=== PATIENT | male | born 1985 | race Caucasian/White ===

== ENCOUNTER 2021-05-16 17:37 | Emergency (ER) | payer OTHER ==
[2021-05-16 17:55] VITALS: RESP 18
[2021-05-16] MEDS ORDERED: ACETAMINOPHEN TAB 500 MG TAB PO STA (18:14)
--- NOTE | 2021-05-16 18:17 | ED ---
General Adult HPI - General Chief complaint: Fever Stated complaint: LR abd pain/fever Time Seen by Provider: 05/16/21 17:59 Source: patient Mode of arrival: ambulatory Limitations: no limitations - History of Present Illness Initial comments: This 35-year-old male presents emergency Department with fever and body aches that began today. Patient states at around 2:00 he began to feel fatigued and started to have body aches, chills, and a dull headache. Patient states a lot of his coworkers are outright now due to COVID-19. Patient denies any chest pain, shortness breath, abdominal pain, change in bowel or bladder, change in vision, dizziness, headache, dizziness, change in appetite. - Related Data Previous Rx's Medication Instructions Recorded ARIPiprazole [Abilify] 2 mg PO DAILY #30 tab 08/04/14 Escitalopram [Lexapro] 10 mg PO DAILY #30 tab 08/04/14 Allergies Allergy/AdvReac Type Severity Reaction Status Date / Time amoxicillin Allergy Unknown Verified 05/16/21 17:54 Review of Systems ROS Statement: Those systems with pertinent positive or pertinent negative responses have been documented in the HPI. ROS Other: All systems not noted in ROS Statement are negative. Past Medical History Additional Past Medical History / Comment(s): Mentally challenged, chronic back pain History of Any Multi-Drug Resistant Organisms: None Reported Past Surgical History: Ear Surgery Additional Past Surgical History / Comment(s): Left ear surgical repair after being sliced, epidural/trigger point injections for back pain Past Anesthesia/Blood Transfusion Reactions: No Reported Reaction Past Psychological History: Anxiety, Depression Smoking Status: Former smoker Past Alcohol Use History: None Reported Past Drug Use History: None Reported - Past Family History Mother Additional Family Medical History / Comment(s): Mother is 56 years of age and has history of fibromyalgia, father is 60 years of age and has no major medical problems. Patient has one sister that is healthy. Patient states her strong history of cancer on both sides of his family but no specifics. General Exam Limitations: no limitations General appearance: alert, in no apparent distress Head exam: Present: atraumatic, normocephalic, normal inspection Eye exam: Present: normal appearance, EOMI ENT exam: Present: normal exam, mucous membranes moist Neck exam: Present: full ROM Respiratory exam: Present: normal lung sounds bilaterally. Absent: respiratory distress, wheezes, rales, rhonchi, stridor Cardiovascular Exam: Present: regular rate, normal rhythm, normal heart sounds. Absent: systolic murmur, diastolic murmur, rubs, gallop, clicks GI/Abdominal exam: Present: soft, normal bowel sounds. Absent: distended, tenderness, guarding, rebound, rigid Extremities exam: Present: full ROM Back exam: Present: full ROM. Absent: CVA tenderness (R), CVA tenderness (L), vertebral tenderness Neurological exam: Present: alert, oriented X3, CN II-XII intact Psychiatric exam: Present: normal affect, normal mood Skin exam: Present: warm, dry, intact, normal color. Absent: rash Course Vital Signs 05/16/21 05/16/21 17:52 19:03 Temperature 102.9 F H 102.1 F H Pulse Rate 117 H 106 H Respiratory 18 18 Rate Blood Pressure 125/74 128/78 O2 Sat by Pulse 99 97 Oximetry Medical Decision Making - Medical Decision Making This 35-year-old male presents to the emergency department with fever, fatigue, body aches that began today. He tested positive for COVID-19. Tylenol given for fever. Patient advised to follow-up with primary care provider in next 24- 48 hours. Advised patient to get pulse oximeter from [facility] and to return to the emergency department oxygen drops below 90%. Conservative Treatment Discussed with Patient. Patient verbally agreed to plan. Strict return turn precautions given. Patient sent home in stable condition. Case discussed with my attending, . - Lab Data Lab Results 05/16/21 Range/Units 18:26 Coronavirus (PCR) Detected A (Not Detectd) Disposition Clinical Impression: COVID-19 Disposition: HOME SELF-CARE Condition: Stable Instructions (If sedation given, give patient instructions): Coronavirus Disease 2019 (COVID-19) Additional Instructions: Please return to the emergency department with any concerning, new, worsening symptoms. Please follow up with primary care provider next 24-48 hours. Take [id number] zinc, vitamin C, vitamin D. Take Tylenol or Motrin for symptom relief as directed. Advised to get pulse oximeter from [facility] and to return to the emergency department oxygen falls below 90%. Is patient prescribed a controlled substance at d/c from ED?: No Referrals: None,Stated [Primary Care Provider] - 1-2 days Time of Disposition: 18:57
[2021-05-16 19:04] VITALS: BP 128/78; PULSE 106; TEMP 102.1
== END 2021-05-16 19:04 | disposition home or self-care (01) ==
LOC: EC 17:37
DX: U07.1 COVID-19 (principal); F41.9 Anxiety disorder, unspecified; F32.A Depression, unspecified; Z87.891 Personal history of nicotine dependence
CPT/HCPCS: 87635; 99284

== ENCOUNTER 2023-02-01 21:14 | Emergency (ER) | payer OTHER ==
[2023-02-01 22:01] VITALS: TEMP 98.1
[2023-02-01] MEDS ORDERED: DOXYCYCLINE 100 MG CAP PO STA (22:06)
[2023-02-01] MEDS ORDERED: metroNIDAZOLE 500 MG TAB PO STA (22:06)
[2023-02-01] MEDS ORDERED: DIPH,PERTUS(ACELL)TETVAC-LF 0.5 ML VIAL IM ONE (22:07)
--- NOTE | 2023-02-01 22:09 | ED ---
Animal Bite HPI - General Chief Complaint: Animal Bite Stated Complaint: Animal Bite Time Seen by Provider: 02/01/23 21:53 Source: family, RN notes reviewed, old records reviewed Mode of arrival: wheelchair Limitations: no limitations - History of Present Illness Initial Comments: This is a 37-year-old male to the emergency department for evaluation of diabetes. Patient has does like prior to arrival. Patient's dog was his own dog's he got in the way of his dog and another dog fighting. Patient has 5 dog at home. They're all up to date on shots as well as they are all domesticated MD Complaint: animal bite, animal-related injury -: hour(s) Left: Leg Animal: dog Description: household pet Mechanism: bite Pain Description: sharp Context: animals fighting Associated Symptoms: none - Related Data Previous Rx's Medication Instructions Recorded ARIPiprazole [Abilify] 2 mg PO DAILY #30 tab 08/04/14 Escitalopram [Lexapro] 10 mg PO DAILY #30 tab 08/04/14 Doxycycline [Vibramycin] 100 mg PO BID 7 Days #14 capsule 02/01/23 metroNIDAZOLE [Flagyl] 500 mg PO TID #21 tab 02/01/23 Allergies Allergy/AdvReac Type Severity Reaction Status Date / Time amoxicillin Allergy Unknown Verified 02/01/23 21:51 Review of Systems ROS Statement: Those systems with pertinent positive or pertinent negative responses have been documented in the HPI. ROS Other: All systems not noted in ROS Statement are negative. Past Medical History Additional Past Medical History / Comment(s): Mentally challenged, chronic back pain History of Any Multi-Drug Resistant Organisms: None Reported Past Surgical History: Ear Surgery Additional Past Surgical History / Comment(s): Left ear surgical repair after being sliced, epidural/trigger point injections for back pain Past Anesthesia/Blood Transfusion Reactions: No Reported Reaction Past Psychological History: Anxiety, Depression Smoking Status: Former smoker Past Alcohol Use History: Occasional Past Drug Use History: Marijuana - Past Family History Mother Additional Family Medical History / Comment(s): Mother is 56 years of age and has history of fibromyalgia, father is 60 years of age and has no major medical problems. Patient has one sister that is healthy. Patient states her strong history of cancer on both sides of his family but no specifics. General Exam Limitations: no limitations General appearance: alert, in no apparent distress Head exam: Present: atraumatic, normocephalic, normal inspection Eye exam: Present: normal appearance, PERRL, EOMI. Absent: scleral icterus, conjunctival injection, periorbital swelling ENT exam: Present: normal exam, mucous membranes moist Neck exam: Present: normal inspection. Absent: tenderness, meningismus, lymphadenopathy Respiratory exam: Present: normal lung sounds bilaterally. Absent: respiratory distress, wheezes, rales, rhonchi, stridor Cardiovascular Exam: Present: regular rate, normal rhythm, normal heart sounds. Absent: systolic murmur, diastolic murmur, rubs, gallop, clicks GI/Abdominal exam: Present: soft, normal bowel sounds. Absent: distended, tend erness, guarding, rebound, rigid Extremities exam: Present: normal inspection, full ROM, normal capillary refill, other (5 cm laceration left leg). Absent: tenderness, pedal edema, joint swelling, calf tenderness Back exam: Present: normal inspection Neurological exam: Present: alert, oriented X3, CN II-XII intact Psychiatric exam: Present: normal affect, normal mood Skin exam: Present: warm, dry, intact, normal color. Absent: rash Course Vital Signs 02/01/23 02/01/23 21:48 22:27 Temperature 98.1 F Pulse Rate 100 83 Respiratory 20 18 Rate Blood Pressure 138/102 145/84 O2 Sat by Pulse 98 98 Oximetry - Reevaluation(s) Reevaluation #1: Medical records reviewed Reevaluation #2: Patient symptoms are improved Reevaluation #3: Patient informed results questions answered Reevaluation #4: Was pt. sent in by a medical professional or institution (, PA, ARCHITECTURE FACULTY MEMBER, urgent care, hospital, or usp...) When possible be specific @ -no Did you speak to anyone other than the patient for history (EMS, parent, family, police, friend...)? What history was obtained from this source @ -no Did you review nursing and triage notes (agree or disagree)? Why? @ -agree Are old charts reviewed (outside hosp., previous admission, EMS record, old EKG, old radiological studies, urgent care reports/EKG's, usp records)? Report findings @ -yes Differential Diagnosis (chest pain, altered mental status, abdominal pain women, abdominal pain men, vaginal bleeding, weakness, fever, dyspnea, syncope, headache, dizziness, GI bleed, back pain, seizure, CVA, palpatations, mental health, musculoskeletal)? @ -prior EKG interpreted by me (3pts min.). @ -no X-rays interpreted by me (1pt min.). @ -no CT interpreted by me (1pt min.). @ -no U/S interpreted by me (1pt. min.). @ -no What testing was considered but not performed or refused? (CT, X-rays, U/S, labs)? Why? @ -none What meds were considered but not given or refused? Why? @ -none Did you discuss the management of the patient with other professionals (professionals i.e. , PA, ARCHITECTURE FACULTY MEMBER, lab, RT, psych nurse, social media intern, patient services representative, teacher, fourth officer, keycase assembler)? Give summary @ -no Was smoking cessation discussed for >3mins.? @ -no Was critical care preformed (if so, how long)? @ -no Were there social determinants of health that impacted care today? How? (Homelessness, low income, unemployed, alcoholism, drug addiction, transportation, low edu. Level, literacy, decrease access to med. care, fci, r ehab)? @ -none Was there de-escalation of care discussed even if they declined (Discuss DNR or withdrawal of care, Hospice)? DNR status @ -no What co-morbidities impacted this encounter? (DM, HTN, Smoking, COPD, CAD, Cancer, CVA, ARF, Chemo, Hep., AIDS, mental health diagnosis, sleep apnea, morbid obesity)? @ -none Was patient admitted / discharged? Hospital course, mention meds given and route , prescriptions, significant lab abnormalities, going to OR and other pertinent info. @ - 37 male to the emergency department for evaluation. Patient is found to have laceration from dog here in the ER. Patient has laceration repaired and can be discharged home Discharge Undiagnosed new problem with uncertain prognosis? @ -no Drug Therapy requiring intensive monitoring for toxicity (Heparin, Nitro, Insulin, Cardizem)? @ -no Were any procedures done? @ -Laceration repair 5 cm Diagnosis/symptom? @ -Dogbite left leg Acute, or Chronic, or Acute on Chronic? @ -Acute Uncomplicated (without systemic symptoms) or Complicated (systemic symptoms)? @ -Complicated Side effects of treatment? @ -no Exacerbation, Progression, or Severe Exacerbation? @ -exacerbation Poses a threat to life or bodily function? How? (Chest pain, [place], MA, pneumonia, PE, COPD, DKA, ARF, appy, cholecystitis, CVA, Diverticulitis, Homicidal, Suicidal, threat to staff... and all critical care pts) @ -no Procedures - Laceration Laceration #1 Consent Obtained: verbal consent Indication: laceration Site: lower extremity Size (cm): 5 Description: linear Depth: simple, single layer Anesthetic Used: lidocaine 1%, with epi Pre-repair: wound explored, irrigated extensively, deep structures intact Type of Sutures: nylon Size of Sutures: 4-0 Technique: simple, interrupted Medical Decision Making - Medical Decision Making 37 male to the emergency department for evaluation. Patient is found to have laceration from dog here in the ER. Patient has laceration repaired and can be discharged home Disposition Clinical Impression: Bite by animal, Dog bite, Leg laceration, Laceration of right lower leg Disposition: HOME SELF-CARE Condition: Good Instructions (If sedation given, give patient instructions): Animal Bite (ED) Prescriptions: metroNIDAZOLE [Flagyl] 500 mg PO TID #21 tab Doxycycline [Vibramycin] 100 mg PO BID 7 Days #14 capsule Is patient prescribed a controlled substance at d/c from ED?: No Referrals: None,Stated [Primary Care Provider] - 1-2 days Time of Disposition: 22:10
[2023-02-01 22:35] VITALS: BP 145/84; PULSE 83; RESP 18
== END 2023-02-01 22:28 | disposition home or self-care (01) ==
LOC: EC 21:14
DX: S81.811A Laceration without foreign body, right lower leg, initial encounter (principal); F12.90 Cannabis use, unspecified, uncomplicated; Z88.0 Allergy status to penicillin; Z23 Encounter for immunization; Z87.891 Personal history of nicotine dependence; W54.0XXA Bitten by dog, initial encounter
CPT/HCPCS: 12002; 90471; 90715; 99283